=== PATIENT | male | born 1945 | race Two or more races ===

== ENCOUNTER 2016-07-01 21:07 | Emergency (ER) | payer OTHER ==
--- NOTE | 2016-07-01 21:25 | CPEKG ---
Heart Rate: 60 RR Interval: 1000 P-R Interval: 156 QRSD Interval: 78 QT Interval: 456 QTC Interval: 456 P [place]: 59 QRS [place]: -20 T Wave [place]: 22 EKG Severity - BORDERLINE ECG - EKG Impression: SINUS RHYTHM EKG Impression: BORDERLINE LEFT AXIS DEVIATION EKG Impression: LOW VOLTAGE IN FRONTAL LEADS EKG Impression: CONSIDER ANTERIOR INFARCT Electronically Signed By: Caryn Vaughan 02-Jul-2016 22:31:52
[2016-07-01] MEDS ORDERED: ASPIRIN 81 MG CHEWABLE TAB PO ONE (21:29)
[2016-07-01 21:34] LABS: % IMMATURE GRANULYOCYTES 0.3 % (0.0-1.1); ABSOLUTE IMMATURE GRANULOCYTES 0.02 10^3/uL (0.00-0.10); ADD DIFF? NO; ADD MORPH? NO; ADD SCAN? NO; ATYPICAL LYMPHOCYTE FLAG 0 (0-99); FRAGMENT RBC FLAG 0 (0-99); HEMATOCRIT 39.6 % (40.0-51.0); LEFT SHIFT FLG 0 (0-99); LIPEMIA HEMOLYSIS FLAG 80 (0-99); MEAN CELL HEMOGLOBIN 24.4 pg (27.9-34.1); MEAN CELL HEMOGLOBIN CONCENTR. 32.8 g/dL (32.4-36.7); MEAN CELL VOLUME 74.4 fL (81.5-99.8); MEAN PLATELET VOLUME 10.7 fL (8.7-11.7); PLATELET CLUMPS FLAG 0 (0-99); PLATELET COUNT 164 10^3/uL (150-400); RED BLOOD CELL COUNT 5.32 10^6/uL (4.40-6.38); RED CELL DISTRIBUTION WIDTH 15.9 % (11.5-15.2)
[2016-07-01 21:43] LABS: ANION GAP 12 mEq/L (8-16); CALCIUM 9.8 mg/dL (8.5-10.4); CARBON DIOXIDE 25 mEq/l (22-31); CHLORIDE 102 mEq/L (97-110); GLOMERULAR FILTRATION RATE > 60; GLUCOSE 144 mg/dL (70-100); POTASSIUM 3.8 mEq/L (3.5-5.2); SODIUM 139 mEq/L (134-144)
[2016-07-01 21:57] VITALS: O2SAT 94
[2016-07-01 21:59] LABS: TROPONIN I < 0.012 ng/mL (0-0.034)
--- NOTE | 2016-07-01 22:21 | EDPHY ---
H & P Stated Complaint: CHEST PAIN TODAY , Time Seen by Provider: 07/01/16 22:02 HPI/ROS: HPI The patient presents with chest pain which began at 5:00 p.m. today while he was sitting. The pain came on slowly, is aching in nature and feels like a muscle. It is right-sided, it has been constant though is gradually improving. It is not associated with any shortness of breath, nausea, vomiting, dizziness , diaphoresis. He had a small amount of pain last night which came and went. He recently arrived from [place] via car. He has not had any lower extremity edema or pain. Has no personal or family history of DVT or PE. He does have a history of cardiac stenting of his mid LAD and his RCA 2 years ago and 1 year ago. He was asymptomatic at the time.. REVIEW OF SYSTEMS Constitutional: No fever, no chills. Eyes: No discharge. ENT: No sore throat. Cardiovascular: See HPI, no palpitations. Respiratory: No cough, no shortness of breath. Gastrointestinal: No abdominal pain, no vomiting. Genitourinary: No hematuria. Musculoskeletal: No back pain. Skin: No rashes. Neurological: No headache. PMHx: CAD, [address], compliant with his medication, hypertension Soc Hx: Visiting from [place] PHYSICAL General Appearance: Alert, no distress Eyes: Pupils equal and round no pallor or injection ENT, Mouth: Mucous membranes moist Respiratory: There are no retractions, lungs are clear to auscultation Cardiovascular: Regular rate and rhythm Gastrointestinal: Abdomen is soft and non-tender, no masses, bowel sounds normal Neurological: A&O, moves all extremities Skin: Warm and dry, no rashes Musculoskeletal: Neck is supple non tender Extremities: symmetrical, full range of motion Psychiatric: Patient is oriented X 3, there is no agitation Source: Patient Exam Limitations: No limitations - Personal History Current Tetanus/Diphtheria Vaccine: Unsure Current Tetanus Diphtheria and Acellular Pertussis (TDAP): Unsure - Medical/Surgical History Hx Asthma: No Hx Chronic Respiratory Disease: No Hx Diabetes: Yes Hx Cardiac Disease: Yes Hx Renal Disease: No Hx Cirrhosis: No Hx Alcoholism: No Hx HIV/AIDS: No Hx Splenectomy or Spleen Trauma: No Other PMH: STENT X1, - Social History Smoking Status: Never smoked Constitutional: Initial Vital Signs Temperature (C) 36.6 C 07/01/16 21:14 Heart Rate 60 07/01/16 21:14 Respiratory Rate 18 07/01/16 21:14 Blood Pressure 150/80 H 07/01/16 21:14 O2 Sat (%) 97 07/01/16 21:14 O2 Delivery Mode Room Air Allergies/Adverse Reactions: No Known Allergies Allergy (Unverified 07/01/16 21:16) Home Medications: Medication Instructions Recorded Aspirin 81 mg PO 07/01/16 Atorvastatin Calcium 10 mg PO 07/01/16 Carvedilol 6.25 mg PO 07/01/16 Metformin HCl [Metformin 1000 mg] 1,000 mg PO 07/01/16 Valsartan [Diovan (*)] 80 mg PO 07/01/16 Medical Decision Making - Diagnostics EKG Interpretation: EKG #1: Complete interpretation has been separately recorded in the [facility] archive. Summary impression: No ischemic changes EKG #2: Complete interpretation has been separately recorded in the [facility] archive. Summary impression: No ischemic changes Imaging Results: Imaging Impressions Chest X-Ray 07/01/16 21:27 Impression: Chest negative for acute cardiopulmonary abnormality. Imaging: I viewed and interpreted images myself ED Course/Re-evaluation: The patient felt well throughout the remainder of his stay in the emergency room. He had no recurrence of his chest pain. I feel the pain is most likely muscular. I obviously cannot completely rule out unstable angina. His EKG showed no ST segment changes and 2 troponins are both undetectable. I have offered him admission to the hospital, however he would like to go home. I a will discharge him from the hospital and have instructed him to follow up with his literacy consultant in the next few days. He should return to the emergency room if he develops any additional chest pain or feels worse in any way. He is in agreement with this plan. Differential Diagnosis: This is a 71-year-old male with CAD, hypertension who presents from home with right-sided chest pain which has been constant for the last 5 hours. It has no associated features. To him it feels like a muscle strain. ACS is a possibility, however initial troponin is 0, EKG shows no ST segment changes, and his pain would be atypical for this. Pulmonary embolism is considered given his recent car trip, however he has no other risk factors, has no hypoxia, shortness of breath, tachycardia. Musculoskeletal pain is a consideration given the nature of this pain. I will also consider early varicella zoster. Because of his history of CAD, I will monitor him in the emergency room. I will obtain a repeat troponin and EKG. If he continues to remain asymptomatic he is suitable for discharge home with Cardiology follow-up soon for possible provocative stress testing. - Data Points Laboratory Results: Laboratory Results 07/01/16 21:25 07/01/16 21:25 07/01/16 07/01/16 07/01/16 22:57 21:25 21:25 WBC 6.66 10^3/uL 10^3/uL (3.80-9.50) RBC 5.32 10^6/uL 10^6/uL (4.40-6.38) Hgb 13.0 g/dL L g/dL (13.7-17.5) Hct 39.6 % L % (40.0-51.0) MCV 74.4 fL L fL (81.5-99.8) MCH 24.4 pg L pg (27.9-34.1) MCHC 32.8 g/dL g/dL (32.4-36.7) RDW 15.9 % H % (11.5-15.2) Plt Count 164 10^3/uL 10^3/uL (150-400) MPV 10.7 fL fL (8.7-11.7) Neut % (Auto) 55.0 % % (39.3-74.2) Lymph % (Auto) 35.4 % % (15.0-45.0) Gilmer % (Auto) 8.1 % % (4.5-13.0) Eos % (Auto) 0.9 % % (0.6-7.6) Baso % (Auto) 0.3 % % (0.3-1.7) Nucleat RBC Rel Count 0.0 % % (0.0-0.2) Absolute Neuts (auto) 3.66 10^3/uL 10^3/uL (1.70-6.50) Absolute Lymphs (auto) 2.36 10^3/uL 10^3/uL (1.00-3.00) Absolute Monos (auto) 0.54 10^3/uL 10^3/uL (0.30-0.80) Absolute Eos (auto) 0.06 10^3/uL 10^3/uL (0.03-0.40) Absolute Basos (auto) 0.02 10^3/uL 10^3/uL (0.02-0.10) Absolute Nucleated RBC 0.00 10^3/uL 10^3/uL (0-0.01) Immature Gran % 0.3 % % (0.0-1.1) Immature Gran # 0.02 10^3/uL 10^3/uL (0.00-0.10) Sodium 139 mEq/L mEq/L (134-144) Potassium 3.8 mEq/L mEq/L (3.5-5.2) Chloride 102 mEq/L mEq/L (97-110) Carbon Dioxide 25 mEq/l mEq/l (22-31) Anion Gap 12 mEq/L mEq/L (8-16) BUN 18 mg/dL mg/dL (7-23) Creatinine 1.0 mg/dL mg/dL (0.7-1.3) Estimated GFR > 60 Glucose 144 mg/dL H mg/dL (70-100) Calcium 9.8 mg/dL mg/dL (8.5-10.4) Troponin I < 0.012 ng/mL ng/mL < 0.012 ng/mL ng/mL (0-0.034) (0-0.034) Medications Given: Discontinued Medications Aspirin (Aspirin) 324 mg PO EDNOW ONE Stop: 07/01/16 21:30 Last Admin: 07/01/16 21:33 Dose: 324 mg Departure - Departure Disposition: Home, Routine, Self-Care Clinical Impression: Chest pain Qualifiers: Chest pain type: unspecified Qualified Code(s): R07.9 - Chest pain, unspecified Condition: Good Instructions: Chest Pain (ED) Additional Instructions: Please return to the emergency room if you develop any recurrence of your chest pain or feel worse in any way. Please follow-up with your literacy consultant was he returned home.
--- NOTE | 2016-07-01 23:04 | CPEKG ---
Heart Rate: 51 RR Interval: 1176 P-R Interval: 144 QRSD Interval: 78 QT Interval: 472 QTC Interval: 435 P [place]: 50 QRS [place]: -28 T Wave [place]: 11 EKG Severity - ABNORMAL ECG - EKG Impression: SINUS RHYTHM EKG Impression: PROBABLE INFERIOR INFARCT, AGE INDETERMINATE EKG Impression: BORDERLINE R WAVE PROGRESSION, ANTERIOR LEADS Electronically Signed By: Caryn Vaughan 02-Jul-2016 22:31:52
[2016-07-02 00:06] VITALS: BP 140/83; PULSE 58; RESP 12; TEMP 99.3
== END 2016-07-02 00:05 | disposition home or self-care (01) ==
DX: R07.9 Chest pain, unspecified (principal); I25.10 Atherosclerotic heart disease of native coronary artery without angina pectoris; I10 Essential (primary) hypertension; E11.9 Type 2 diabetes mellitus without complications; Z79.82 Long term (current) use of aspirin; Z79.84 Long term (current) use of oral hypoglycemic drugs; Z95.5 Presence of coronary angioplasty implant and graft